=== PATIENT | female | born 1995 | race Two or more races ===

== ENCOUNTER 2023-11-26 09:07 | Emergency (ER) | payer OTHER ==
[~2023-11-26] VITALS: Ht 152.4 cm; Wt 53.8 kg
[2023-11-26 10:44] VITALS: BP 123/74; PULSE 84; RESP 18; TEMP 99.6; O2SAT 98
[2023-11-26] MEDS ORDERED: IBUP-1455 PO (10:55)
== END 2023-11-26 10:57 | disposition home or self-care (01) ==
LOC: ER 09:07
DX: S60.221A Contusion of right hand, initial encounter (principal); Z79.1 Long term (current) use of non-steroidal anti-inflammatories (NSAID); W22.8XXA Striking against or struck by other objects, initial encounter; Y93.89 Activity, other specified; Y92.89 Other specified places as the place of occurrence of the external cause; Y99.8 Other external cause status
CPT/HCPCS: 73130